=== PATIENT | male | born 1980 | race Caucasian/White ===

== ENCOUNTER → 2020-08-07 | Outpatient (CLI) | payer OTHER ==
--- NOTE | ~2020-08-07 | TEE ---
[facility] [address] [place] [place] [address] TRANSESOPHAGEAL ECHOCARDIOGRAM Name: SUSANNE HEBERT Room #: REG [facility].#: [id number] Admission: 08/07/20 Attend Phys: Marko Brian MD Discharge: Date of : 82 Report #: [id number] THIS REPORT FOR: cc: FAM - Family physician unknown FAM - Family physician unknown Landon Caceres MD [facility] ~ APPROVED REPORT Study performed: 08/07/2020 10:11:41 EXAM: Comprehensive 2D, Doppler, and color-flow Echocardiogram Patient Location: Out-Patient Room #: 2 Status: routine BSA: 1.99 HR: 68 bpm BP: 118/72 mmHg Rhythm: NSR Other Information Study Quality: Good Indications Arrhythmia 2D Dimensions RVDd: 36.73 mm IVSd: 8.07 (7-11mm) LVOT Diam: 20.85 (18-24mm) LVDd: 47.96 mm PWd: 7.97 (7-11mm) Ascending Ao: 25.98 (22-36mm) LVDs: 30.32 (25-40mm) Aortic Root: 31.51 mm IVC: 15.00 mm Volumes Left Atrial Volume (Systole) Single Plane 4CH: 49.86 mL Single Plane 2CH: 43.76 mL LA ESV Index: 25.00 mL/m2 Aortic Valve AoV Peak Carlos A.: 0.96 m/s AO Peak Gr.: 3.68 mmHg LVOT Max P.18 mmHg LVOT Max V: 0.89 m/s PASCUAL Vmax: 3.17 cm2 [facility] [address] [place] [address] TRANSESOPHAGEAL ECHOCARDIOGRAM Name: EMILEESUSANNE Room #: REG [facility]#: [id number] Admission: 08/07/20 Attend Phys: Marko Brian MD Discharge: Date of : 82 Report #: [id number] Mitral Valve E/A Ratio: 1.5 MV Decel. Time: 243.17 ms MV E Max Carlos A.: 0.79 m/s MV A Carlos A.: 0.53 m/s MV PHT: 70.52 ms IVRT: 106.11 ms Pulmonary Valve PV Peak Carlos A.: 0.90 m/s PV Peak Gr.: 3.22 mmHg Pulmonary Vein P Vein S: 0.49 m/s P Vein A: 0.28 m/s P Vein D: 0.36 m/s P Vein A Dur.: 73.8 msec P Vein S/D Ratio: 1.36 Tricuspid Valve TR Peak Carlos A.: 2.32 m/s TR Peak Gr.: 21.51 mmHg PA Pressure: 26.00 mmHg Left Ventricle The left ventricle is normal size. There is normal LV segmental wall motion. There is normal left ventricular wall thickness. Left ventricular systolic function is normal. The left ventricular ejection fraction is within the normal range. LVEF is 55-60%. The left ventricular diastolic function is normal. Right Ventricle The right ventricle is normal size. The right ventricular systolic function is normal. Atria The left atrium size is normal. The right atrium size is normal. Aortic Valve The aortic valve is normal in structure. No aortic regurgitation is present. There is no aortic valvular stenosis. Mitral Valve The mitral valve is normal in structure. Trace mitral regurgitation. No evidence of mitral valve stenosis. Tricuspid Valve The tricuspid valve is normal in structure. There is trace tricuspid [facility] [address] [place] [address] TRANSESOPHAGEAL ECHOCARDIOGRAM Name: SUSANNE HEBERT Room #: REG Helga#: [id number] Admission: 08/07/20 Attend Phys: Marko Brian MD Discharge: Date of : 82 Report #: [id number] regurgitation. Estimated PAP 26 mmHg. There is no pulmonary hypertension. Pulmonic Valve The pulmonary valve is normal in structure. There is no pulmonic valvular regurgitation. Great Vessels The aortic root is normal in size. IVC is normal in size and collapses >50% with inspiration. Pericardium There is no pericardial effusion. <Conclusion> Normal left ventricular size/wall thickness Ejection fraction 55-60% Normal right ventricular size/function Normal atrial size Color-flow Doppler study was performed of the aortic/mitral/tricuspid/pulmonary valve Trace tricuspid valve insufficiency Pulmonary artery systolic pressure estimated 26 mmHg Normal aortic root size No pericardial effusion By: [id number] [id number] Landon Caceres MD, FACC /INF
--- NOTE | 2020-08-07 15:00 | EKG ---
[place] [address] [facility] [place] [address] ELECTROCARDIOGRAM REPORT Name: SUSANNE HEBERT Room #: REG ALBA Partida#: [id number] Admission: 08/07/20 Attend Phys: Marko Brian MD Discharge: Date of : 82 Report #: [id number] [facility] Test Date: 2020-08-07 Test Time: 11:14:41 Pat Name: SUSANNE HEBERT Department: Room: Gender: M Credit Consultant: YANNI : 1980 Requested By: Marko Brian Order Number: [id number] MD: González Marquez Measurements Intervals [place] Rate: 62 P: 57 SD: 157 QRS: 67 QRSD: 95 T: 28 QT: 427 QTc: 434 Interpretive Statements Sinus rhythm Probable left atrial enlargement Baseline wander in lead(s) V4 No previous ECG available for comparison Electronically Signed On 08-07-2020 15:00:48 CDT by González Marqeuz [email or web address] <ELECTRONICALLY SIGNED> By: González Marquez MD 08/07/20 1500 1114 [id number] González Marquez MD /JUDSON
--- NOTE | 2020-08-08 14:49 | 2DMMODE ---
[facility] [place] [address] [address] [place] [address] 2 D/M-MODE ECHOCARDIOGRAM Name: SUSANNE HEBERT Room #: REG [facility]#: [id number] Admission: 08/07/20 Attend Phys: Zayra Brian MD Discharge: Date of : [birth year] Report #: [id number] THIS REPORT FOR: cc: FAM - Family physician unknown FAM - Family physician unknown Landon Caceres MD [facility] Zayra Brian MD ~ Sex/Age : M/40Y Height/Weight : 180.3cm/79.4kg Patient Name : SUSANNE HEBERT Study Date : 2020-08-07 BSA : 1.99? Requesting Name : ECHO STANDARD W/O CONTRAST Date of : 1980 Request Doctor : ZAYRA BRIAN Department : CARD --< Approved Report > Study performed: 08/07/2020 10:11:41 EXAM: Comprehensive 2D, Doppler, and color-flow Echocardiogram Patient Location: Out-Patient Room #: 2 Status: routine BSA: 1.99 HR: 68 bpm BP: 118/72 mmHg Rhythm: NSR Other Information Study Quality: Good Indications Arrhythmia 2D Dimensions RVDd: 36.73 mm IVSd: 8.07 (7~11mm) LVOT Diam: 20.85 (18~24mm) LVDd: 47.96 mm PWd: 7.97 (7~11mm) Ascending Ao: 25.98 (22~36mm) LVDs: 30.32 (25~40mm) Aortic Root: 31.51 mm IVC: 15.00 mm Volumes Left Atrial Volume (Systole) [facility] [address] [place] [address] 2 D/M-MODE ECHOCARDIOGRAM Name: SUSANNE HEBERT Room #: REG JOANNE Partida#: [id number] Admission: 08/07/20 Attend Phys: Zayra Brian MD Discharge: Date of : 82 Report #: [id number] Single Plane 4CH: 49.86 mL Single Plane 2CH: 43.76 mL LA ESV Index: 25.00 mL/m2 Aortic Valve AoV Peak Carlos A.: 0.96 m/s AO Peak Gr.: 3.68 mmHg LVOT Max P.18 mmHg LVOT Max V: 0.89 m/s PASCUAL Vmax: 3.17 cm2 Mitral Valve E/A Ratio: 1.5 MV Decel. Time: 243.17 ms MV E Max Carlos A.: 0.79 m/s MV A Carlos A.: 0.53 m/s MV PHT: 70.52 ms IVRT: 106.11 ms Pulmonary Valve PV Peak Carlos A.: 0.90 m/s PV Peak Gr.: 3.22 mmHg Pulmonary Vein P Vein S: 0.49 m/s P Vein A: 0.28 m/s P Vein D: 0.36 m/s P Vein A Dur.: 73.8 msec P Vein S/D Ratio: 1.36 Tricuspid Valve TR Peak Carlos A.: 2.32 m/s TR Peak Gr.: 21.51 mmHg PA Pressure: 26.00 mmHg Left Ventricle The left ventricle is normal size. There is normal LV segmental wall motion. There is normal left ventricular wall thickness. Left ventricular systolic function is normal. The left ventricular ejection fraction is within the normal range. LVEF is 55-60%. The left ventricular diastolic function is normal. Right Ventricle The right ventricle is normal size. The right ventricular systolic function is normal. Atria The left atrium size is normal. The right atrium size is normal. Aortic Valve The aortic valve is normal in structure. No aortic regurgitation is present. There is no aortic valvular stenosis. [facility] [address] [place] [address] 2 D/M-MODE ECHOCARDIOGRAM Name: SUSANNE HEBERT Room #: REG CL Shanel.#: [id number] Admission: 08/07/20 Attend Phys: Zayra Brian MD Discharge: Date of : 82 Report #: [id number] Mitral Valve The mitral valve is normal in structure. Trace mitral regurgitation. No evidence of mitral valve stenosis. Tricuspid Valve The tricuspid valve is normal in structure. There is trace tricuspid regurgitation. Estimated PAP 26 mmHg. There is no pulmonary hypertension. Pulmonic Valve The pulmonary valve is normal in structure. There is no pulmonic valvular regurgitation. Great Vessels The aortic root is normal in size. IVC is normal in size and collapses >50% with inspiration. Pericardium There is no pericardial effusion. <Conclusion> Normal left ventricular size/wall thickness Ejection fraction 55-60% Normal right ventricular size/function Normal atrial size Color-flow Doppler study was performed of the aortic/mitral/tricuspid/pulmonary valve Trace tricuspid valve insufficiency Pulmonary artery systolic pressure estimated 26 mmHg Normal aortic root size No pericardial effusion Electronically Approved : 08/08/2020 14:47:33 By: [id number] Landon Caceres MD, [facility] /
== END ==
LOC: CV 10:51
PROVIDERS: ATTEND Orthopaedic Surgery
DX: I49.9 Cardiac arrhythmia, unspecified (principal)